=== PATIENT | female | born 2000 | race Caucasian/White ===

== ENCOUNTER 2018-05-27 13:00 | Emergency (ER) | payer MEDICAID, OTHER ==
[~2018-05-27] VITALS: Ht 162.6 cm; Wt 62.6 kg
[2018-05-27 13:05] VITALS: BP 139/85
[2018-05-27] MEDS ORDERED: PENI250T2 PO (13:34)
== END 2018-05-27 13:56 | disposition home or self-care (01) ==
LOC: ER 13:00
DX: K08.89 Other specified disorders of teeth and supporting structures (principal)
CPT/HCPCS: 99283

== ENCOUNTER 2018-11-28 15:07 | Emergency (ER) | payer MEDICAID, OTHER ==
[~2018-11-28] VITALS: Ht 162.6 cm; Wt 65.9 kg
[2018-11-28 15:13] VITALS: BP 119/61
== END 2018-11-28 15:48 | disposition home or self-care (01) ==
LOC: ER 15:07
DX: S61.212A Laceration without foreign body of right middle finger without damage to nail, initial encounter (principal); W45.8XXA Other foreign body or object entering through skin, initial encounter; Y93.89 Activity, other specified; Y92.89 Other specified places as the place of occurrence of the external cause; Y99.8 Other external cause status
CPT/HCPCS: 99281